=== PATIENT | female | born 1950 | race African-American/Black ===

== ENCOUNTER → 2016-08-03 | Day surgery (SDC) | payer MEDICARE ==
[~2016-08-03] MED LIST: ASPIRIN325 M1 PO; BAYER ASPIRIN325 M1 PO; BENTYL20 M1 PO; CARAFATE1 G PO; CIPRO PO; CRESTOR PO; CRESTOR10 MG PO; CRESTOR5 MG PO; DICYCLOMINE PO; EC-NAPROSYN500 MG PO; ECOTRIN325 MG PO; EYE DROPS; FLUTICASONE; GABAPENTIN300 MG PO; LORATADINE PO; LUBRICANT EYE15 M1 OU; MEDROL PO; MIRALAX17 GM PO; MOBIC15 MG PO; MYRBETRIQ PO; MYRBETRIQ50 MG PO; NAPROSYN250 M1 PO; NAPROXEN 220 MG PO; NAPROXEN250 MG PO; NEURONTIN PO; NEURONTIN300 MG PO; NIFEDIPINE ER60 M2 PO; NIFEDIPINE ER90 MG PO; NORVASC PO; NORVASC10 MG PO; OMEPRAZOLE20 M1 PO; OMEPRAZOLE40 M1 PO; OMEPRAZOLE40 MG PO; PERCOCET5/325 PO; PHENERGAN25 M1 PO; PRILOSEC PO; PRILOSEC40 MG PO; PROCARDIA10 MG PO; PYRIDIUM PO; REGLAN PO; RIFAMPIN300 MG PO; VICODIN 5/1 TAB 5/50 PO; ZOFRAN PO; [UNRECOGNIZED DRUG - OTHER]
--- NOTE | ~2016-08-03 | OR ---
Unit #: [id number] #: [id number] Patient: MAYUR ERICKSON [id number] [address] [place], [place] [address] [id number] O MR#: [id number] NAME: MAYUR ERICKSON ROOM: Date of Procedure: 08/03/2016 Admission Date: 08/03/2016 Surgeon: Chepe Cyr M.D. : 1950 Attending Physician: Chepe Cyr M.D. Referring Physician: Chepe Cyr M.D. Primary Care Physician: Lucy Soto M.D. OPERATIVE REPORT JOB NOTE: CC: PCP. PROCEDURE PERFORMED Colonoscopy with snare polypectomy. INDICATIONS FOR PROCEDURE The patient with significant lower abdominal pain, chronic severe constipation, history of partial bowel resection. MEDICATIONS Monitored anesthesia. POSTOPERATIVE FINDINGS 1. Multiple polyps. Transverse colon shows 4 polyps, the largest was 1 cm, all snared and sent for histopathology. Rectosigmoid area shows at least 8 polyps, could be hyperplastic. They were snared and sent for histopathology. 2. Anastomosis was intact. PLAN Symptomatic treatment for constipation. Follow up on pathology report. Repeat colonoscopy in 3 years. DESCRIPTION OF PROCEDURE The patient was explained of the procedure, risks, and benefits along with risks and benefits of anesthesia. She was brought to the endoscopy room. Propofol anesthesia was given. Rectal exam was done, which was normal. Colonoscope was lubricated, passed up the rectum, advanced under direct vision all the way to the cecum. Cecum was identified by ileocecal valve and appendiceal orifice. I then started to pull the scope out carefully looking. Multiple polyps were seen and snared as described. I retroflexed in the rectum, small hemorrhoids seen. The scope was gently pulled out. She tolerated it well. No major complications were seen. Dictated by... Stephan Cabrera/cammy TD: 08/04/2016 02:22 JOB #: [id number] Unit #: [id number] #: [id number] Patient: MAYUR ERICKSON OPERATIVE REPORT X Chepe Cyr MD PROCEDURE OPERATIVE NOTE
== END | disposition home or self-care (01) ==
LOC: COPS 08:43
DX: D12.3 Benign neoplasm of transverse colon (principal); K63.5 Polyp of colon; I10 Essential (primary) hypertension; K21.9 Gastro-esophageal reflux disease without esophagitis; F17.210 Nicotine dependence, cigarettes, uncomplicated; Z88.0 Allergy status to penicillin; Z88.2 Allergy status to sulfonamides; Z79.899 Other long term (current) drug therapy; Z90.49 Acquired absence of other specified parts of digestive tract; Z90.710 Acquired absence of both cervix and uterus; Z98.890 Other specified postprocedural states
CPT/HCPCS: 88305; J2250

== ENCOUNTER 2016-08-18 08:50 | Emergency (ER) | payer MEDICARE ==
[2016-08-18 08:45] LABS: URINE SOURCE CLEAN CATCH
[2016-08-18 08:50] LABS: URINE APPEARANCE CLEAR; URINE BILIRUBIN NEG (NEG); URINE BLOOD TRACE (NEG); URINE COLOR YELLOW; URINE GLUCOSE NEG (NEG); URINE KETONE NEG (NEG); URINE LEUKOCYTE ESTERASE NEG (NEG); URINE NITRATE NEG (NEG); URINE PROTEIN NEG (NEG); URINE SPECIFIC GRAVITY 1.007 (1.003-1.035); URINE UROBILINOGEN 0.2 MG/DL (NEG)
[2016-08-18 08:53] LABS: URBCS1 AUWI 0-2 /[HPF] (0-2); URINE BACTERIA AUWI NEG (NEGATIVE); URINE SQUAMOUS EPITHELIAL CELL NONE SEEN /[HPF]; UWBCS1 AUWI 0-2 (0-5)
[2016-08-18 08:54] LABS: CULTURE INDICATED? NO
== END 2016-08-18 09:30 | disposition home or self-care (01) ==
LOC: CED 08:50
PROVIDERS: Emergency Medicine
DX: R30.0 Dysuria (principal)
CPT/HCPCS: 36415; 81003; 99283

== ENCOUNTER 2016-08-21 21:51 | Emergency (ER) | payer MEDICARE ==
--- NOTE | ~2016-08-21 | CT4 ---
[facility] A Service [facility] RADIOLOGY TEXT RESULTS PATIENT: MAYUR ERICKSON LOCATION: [facility] : 52 UNIT #: [id number] AGE: [address]: Umesh Good MD SEX: F ORDER DR: [id number] [facility] [address] [place], [place] [address] [id number] MR#: [id number] Acc #: [id number] NAME: MAYUR ERICKSON. : 1950 SEX: F STUDY DATE/TIME: 08/21/2016 21:17 UNIT: RENAE ROOM: STUDY DESCRIPTION: CT Abd and Pelv Wo Cont Attending Physician: Umesh Good M.D. Ordering Physician: Won Reynolds M.D. Primary Care Physician: Lucy Soto M.D. MEDICAL IMAGING REPORT This report is preliminary unless electronic signature is present EXAM CT abdomen and pelvis without contrast HISTORY Abdomen pain and burning with urination for [address] examination was performed with one or more of the following radiation dose reduction techniques: automatic exposure control, adjustment of mA and/or kV according to patient size, and iterative reconstruction. FINDINGS CT abdomen and pelvis was performed without contrast. CT ABDOMEN: The lung bases are clear. The liver, gallbladder, spleen, pancreas, kidneys, and adrenal glands are normal. No renal calculi. No hydronephrosis. No perinephric stranding. CT PELVIS: Hysterectomy and appendectomy. Mild sigmoid diverticulosis. No diverticulitis. No free fluid. No bowel dilatation. Urinary bladder is unremarkable. IMPRESSION 1. No acute findings in the abdomen or pelvis. 2. No urinary obstruction or bowel obstruction. 3. No free fluid or inflammatory stranding. 4. Appendectomy and hysterectomy. Dictated by... Devon Nance M.D. [facility] A Service [facility] RADIOLOGY TEXT RESULTS PATIENT: MAYUR ERICKSON LOCATION: [facility] : 52 UNIT #: [id number] AGE: [address]: Umesh Good MD SEX: F ORDER DR: THIS IS AN ELECTRONICALLY VERIFIED REPORT Devon Nance M.D. at 08/22/2016 3:59 PM GRETA/dot TD: 08/22/2016 08:39 JOB #: [id number] MEDICAL IMAGING REPORT Page 1 of 1 COPY
[2016-08-21 20:08] LABS: URINE SOURCE CLEAN CATCH
[2016-08-21 20:22] LABS: CULTURE INDICATED? YES; URINE APPEARANCE CLEAR; URINE BACTERIA AUWI NEG (NEGATIVE); URINE BLOOD TRACE (NEG); URINE COLOR DK YELLOW; URINE GLUCOSE NEG (NEG); URINE KETONE TRACE (NEG); URINE LEUKOCYTE ESTERASE TRACE (NEG); URINE NITRATE NEG (NEG); URINE PH 5.5 (5-8); URINE PROTEIN 1+ (NEG); URINE SPECIFIC GRAVITY 1.026 (1.003-1.035); URINE SQUAMOUS EPITHELIAL CELL FEW /[HPF]
[2016-08-21 20:36] LABS: BASOPHIL# 0.1 X10e3 (0-0.3); BASOPHIL% 0.5 % (0-2.5); EOSINOPHIL# 0.1 X10e3 (0-0.7); EOSINOPHIL% 0.6 % (0.0-7.0); HEMATOCRIT 44.9 % (35.0-45.0); HEMOGLOBIN 14.9 gm/dL (12.0-16.0); LYMPHOCYTE# 2.2 X10e3 (1.0-3.5); LYMPHOCYTE% 19.9 % (17.0-45.0); MEAN CELL VOLUME 91.4 FL (83-96); MEAN CORPUSCULAR HEMOGLOBIN 30.4 PG (28-34); MEAN CORPUSCULAR HGB CONC 33.3 g/dL (30-36); MEAN PLATELET VOLUME 7.7 FL (6.5-11.5); MONOCYTE% 9.2 % (3.0-12.0); NEUTROPHIL# 7.6 X10e3 (1.5-7.1); NEUTROPHIL% 69.8 % (40-75); PLATELET COUNT 271 X10e3 (140-420); RED BLOOD COUNT 4.92 X10e (3.90-5.30); RED CELL DISTRIBUTION WIDTH 14.8 % (11.0-15.5); WHITE BLOOD COUNT 10.9 X10e3 (4.0-10.5)
[2016-08-21 20:37] LABS: U HYALINE CASTS AUWI 0-2 /[LPF]; URINE BILIRUBIN NEG (NEG); URINE MUCUS PRESENT
[2016-08-21 20:42] LABS: DIFF IND NO
[2016-08-21 21:03] LABS: ALBUMIN SERUM 4.4 g/dL (3.5-5.0); BILIRUBIN, DIRECT 0.1 mg/dL (0.0-0.2); BILIRUBIN,INDIRECT 0.3 mg/dL (0.0-0.9); BILIRUBIN,TOTAL 0.4 mg/dL (0.2-2.0); BUN/CREATININE RATIO 18.57; CALCIUM SERUM 9.8 mg/dL (8.4-10.2); CREATININE SERUM 0.7 mg/dL (0.6-1.4); GLOM FILT RATE Estimated 105.4 mL/min (>60); POTASSIUM 3.2 mmol/L (3.5-5.1); PROTEIN TOTAL SERUM 8.4 g/dL (6.0-8.3)
== END 2016-08-21 23:15 | disposition home or self-care (01) ==
LOC: CED 21:51
PROVIDERS: Emergency Medicine
DX: R30.0 Dysuria (principal); R10.9 Unspecified abdominal pain; R11.0 Nausea; R10.12 Left upper quadrant pain; R10.31 Right lower quadrant pain; K21.9 Gastro-esophageal reflux disease without esophagitis; E78.5 Hyperlipidemia, unspecified; I10 Essential (primary) hypertension; F17.200 Nicotine dependence, unspecified, uncomplicated; Z79.899 Other long term (current) drug therapy; Z88.0 Allergy status to penicillin; Z88.2 Allergy status to sulfonamides
CPT/HCPCS: 36415; 74176; 80048; 80076; 81003; 83690; 85025; 87086; 87088; 87186; 96361; 96374; 96375; 99284; J2270; J2405

== ENCOUNTER 2016-12-13 09:23 | Emergency (ER) | payer MEDICARE ==
--- NOTE | ~2016-12-13 | CT2 ---
[facility] A Service [facility] RADIOLOGY TEXT RESULTS PATIENT: MAYUR ERICKSON LOCATION: [facility] : 52 UNIT #: [id number] AGE: [address]: Pam Guaman SEX: F ORDER DR: [id number] [place] [id number] [facility]. [place], [place] [address] [id number] E MR#: [id number] Acc #: [id number] NAME: MAYUR ERICKSON : 1950 SEX: F STUDY DATE/TIME: 12/13/2016 12:33 UNIT: RENAE ROOM: STUDY DESCRIPTION: CT Abd and Pelv W Cont Attending Physician: Pam Guaman Pa-C Referring Physician: Scotty Fisher M.D. Ordering Physician: Bertin Prescott M.D. Primary Care Physician: Lucy Soto M.D. MEDICAL IMAGING REPORT This report is preliminary unless electronic signature is present EXAM CT of abdomen and pelvis. INDICATIONS Constipation for week. Rectal bleeding for 1 day. Hyw-ta-gokqi bilateral lower quadrant abdominal pain for [address] of the abdomen and pelvis with 100 mL Isovue-370 IV contrast. Coronal and sagittal reconstructions were obtained. This CT exam was performed with one or more of the following radiation dose reduction techniques: automatic exposure control, adjustment of mA and/or kV according to patient size, and iterative reconstruction. COMPARISON CT abdomen and pelvis, dated 12/10/2014. FINDINGS ABDOMEN: The solid abdominal organs and the gallbladder are within normal limits. The bowel is not dilated. The appendix is surgically absent. There are some colonic diverticula in the left side of the colon. No diverticulitis. The abdominal aorta is normal in caliber. PELVIS: No pelvic mass. Bladder is unremarkable. No enlarged pelvic or inguinal lymph nodes. No acute osseous abnormalities. IMPRESSION 1. No acute findings in the abdomen and pelvis. 2. Diverticulosis without diverticulitis. [facility] A Service [facility] RADIOLOGY TEXT RESULTS PATIENT: MAYUR ERICKSON LOCATION: [facility] : 52 UNIT #: [id number] AGE: [address]: Pam Guaman SEX: F ORDER DR: Dictated by... Lc Gonzalez M.D. THIS IS AN ELECTRONICALLY VERIFIED REPORT Lc Gonzalez M.D. at 12/15/2016 6:05 AM JOEL/liliya TD: 12/13/2016 19:34 JOB #: [id number] MEDICAL IMAGING REPORT Page 1 of 1 COPY
[2016-12-13 10:21] LABS: BASOPHIL# 0.1 X10e3 (0-0.3); BASOPHIL% 0.8 % (0-2.5); EOSINOPHIL% 0.3 % (0.0-7.0); HEMATOCRIT 45.8 % (35.0-45.0); HEMOGLOBIN 15.3 gm/dL (12.0-16.0); LYMPHOCYTE# 1.9 X10e3 (1.0-3.5); LYMPHOCYTE% 24.8 % (17.0-45.0); MEAN CELL VOLUME 92.6 FL (83-96); MEAN CORPUSCULAR HGB CONC 33.4 g/dL (30-36); MEAN PLATELET VOLUME 7.7 FL (6.5-11.5); MONOCYTE# 0.6 X10e3 (0-1.0); MONOCYTE% 7.6 % (3.0-12.0); NEUTROPHIL# 5.1 X10e3 (1.5-7.1); NEUTROPHIL% 66.5 % (40-75); PLATELET COUNT 256 X10e3 (140-420); RED BLOOD COUNT 4.94 X10e (3.90-5.30); RED CELL DISTRIBUTION WIDTH 14.2 % (11.0-15.5); WHITE BLOOD COUNT 7.6 X10e3 (4.0-10.5)
[2016-12-13 10:22] LABS: DIFF IND NO
[2016-12-13 10:50] LABS: ALBUMIN SERUM 4.3 g/dL (3.5-5.0); BILIRUBIN, DIRECT 0.1 mg/dL (0.0-0.2); BILIRUBIN,TOTAL 1.1 mg/dL (0.2-2.0); CALCIUM SERUM 9.2 mg/dL (8.4-10.2); CREATININE SERUM 0.7 mg/dL (0.6-1.4); GLOM FILT RATE Estimated 105.4 mL/min (>60); PROTEIN TOTAL SERUM 7.6 g/dL (6.0-8.3)
== END 2016-12-13 13:52 | disposition home or self-care (01) ==
LOC: CED 09:23
PROVIDERS: Physician Assistant
DX: K59.00 Constipation, unspecified (principal); K92.1 Melena; K21.9 Gastro-esophageal reflux disease without esophagitis; I10 Essential (primary) hypertension; E78.5 Hyperlipidemia, unspecified; Z90.49 Acquired absence of other specified parts of digestive tract; Z90.710 Acquired absence of both cervix and uterus; F17.200 Nicotine dependence, unspecified, uncomplicated; Z79.899 Other long term (current) drug therapy; Z88.0 Allergy status to penicillin; Z88.2 Allergy status to sulfonamides
CPT/HCPCS: 36415; 74177; 80048; 80076; 83690; 85025; 96360; 99284; Q9967